=== PATIENT | male | born 1955 | race Caucasian/White ===

== ENCOUNTER 2017-03-31 12:23 | Outpatient (CLI) | payer BC, OTHER ==
--- NOTE | 2017-03-31 12:49 | RAD ---
KUB: HISTORY: Renal calculus. FINDINGS: There is a large amount of stool present in the colon. This completely obscures the right kidney. I do not see any definitive left renal calculi. Two calcifications in the left side of the pelvis cou ld potentially be in the distal left ureter. I do not definitely visualize these on the prior exam. IMPRESSION: 1. The right kidney is completely obscured by a large amount of stool. No definitive renal calculi. 2. Two calcifications left side of the pelvis, potentially distal ureteral calculi. POS: SANJAY
[2017-03-31 13:47] LABS: Bacteria/HPF None Seen HPF (None Seen); Hyaline Casts/LPF 0-3 HYALINE CAST LPF (0-3 Hyaline); Squamous Epithelial None Seen HPF (0-3); WBC/HPF None Seen HPF (0-3)
[2017-03-31 13:49] LABS: Bilirubin Negative (Negative); Blood, Urine Moderate (Negative); Glucose, Urine (Dipstick) Negative (Negative); Ketone, Urine Negative (Negative); Nitrite Negative (Negative); Protein, Urine (Dipstick) Negative (Neg-Trace); Urobilinogen 0.2 mg/dL (0.2-1.0)
== END 2017-03-31 12:24 | disposition home or self-care (01) ==
LOC: RAD 12:23
PROVIDERS: ATTEND Urology
DX: N20.2 Calculus of kidney with calculus of ureter (principal); R35.0 Frequency of micturition
CPT/HCPCS: 74000; 81001; 87086

== ENCOUNTER 2017-04-11 07:20 | Outpatient (CLI) | payer BC, OTHER ==
[2017-04-11 08:38] LABS: Anion Gap 11 mmol/L (10-20); BUN (Urea Nitrogen) 15 mg/dL (8.4-25.7); Calc. Creatinine Clearance 0 mL/min (70-130); Calcium 9.2 mg/dL (7.8-10.44); Carbon Dioxide 29 mmol/L (23-31); Chloride 104 mmol/L (98-107); Estimated GFR-MDRD Greater than 90
--- NOTE | 2017-04-11 09:01 | ULT ---
ULTRASOUND RETROPERITONEUM COMPLETE: (RENAL) HISTORY: 61-year-old male with calculus of kidney and calculus of ureter. FINDINGS: The right kidney measures 11 x 5.5 x 6 cm. The left kidney measures 11.5 x 5 x 5 cm. Both kidneys h ave normal cortical thickness and normal cortical echogenicity. There is no hydronephrosis. Cursory images of the urinary bladder demonstrate no gross abnormality. IMPRESSION: Normal jn POS: GER
--- NOTE | 2017-04-11 09:24 | RAD ---
SUPINE AP ABDOMINAL RADIOGRAPH: Date: 04/11/17 HISTORY: Ureteral calculi. COMPARISON: 03/31/17. FINDINGS: There is a moderate amount of retained fecal material seen throughout the colon. This does obscure th e renal shadows bilaterally, limiting evaluation for renal calculi. No definitive suspicious calcific ations are seen. A few punctate radiopaque densities are seen overlying the abdomen, which were also seen on the prior study, but have certainly decreased in number and likely related to ingested materi al within bowel. Vascular calcifications and phleboliths overlie the pelvis. Degenerative changes are noted in the spine. There is right convex curvature of the lumbar spine. IMPRESSION: 1. Obscuration of the renal shadows bilaterally due to retained fecal material within the colon. The re are stable calcifications overlying the pelvis, which may represent phleboliths and vascular type calcifications. 2. Moderate amount of retained fecal material seen throughout the colon. POS: GER
== END 2017-04-11 07:21 | disposition home or self-care (01) ==
LOC: ULT 07:20
PROVIDERS: ATTEND Urology
DX: N20.2 Calculus of kidney with calculus of ureter (principal); K59.09 Other constipation; K31.89 Other diseases of stomach and duodenum
CPT/HCPCS: 36415; 74000; 76770; 80048

== ENCOUNTER 2017-11-24 10:16 | Outpatient (CLI) | payer BC, OTHER | END 2017-11-24 10:17 | disposition home or self-care (01) | LOC: BICULT 10:16 | PROVIDERS: ATTEND Urology | DX: N20.0 Calculus of kidney (principal); R39.198 Other difficulties with micturition | CPT/HCPCS: 36415; 74018; 76770; 80048; 81003; 87086; G0103 ==

== ENCOUNTER 2018-08-07 12:48 | Outpatient (CLI) | payer BC, OTHER ==
--- NOTE | 2018-08-07 13:42 | ULT ---
BILATERAL RENAL ULTRASOUND: HISTORY: Incomplete bladder emptying. COMPARISON: 04/11/2017 FINDINGS: The right kidney measures 11.5 cm in length, and the left kidney measures 11.1 cm in length. No mass or hydronephrosis is seen on either side. A 6 mm shadowing, echogenic focus, consistent with calcul us, is seen in the right mid-inferior kidney. Pre-void bladder volume measures 629 mL, with a post void residual of 407 mL. IMPRESSION: 1. Nonobstructing right renal calculus. 2. Significant post void residual volume in the urinary bladder. POS: OFF
== END 2018-08-07 12:49 | disposition home or self-care (01) ==
LOC: BICULT 12:48
PROVIDERS: ATTEND Urology
DX: R39.14 Feeling of incomplete bladder emptying (principal); R35.0 Frequency of micturition; N40.1 Benign prostatic hyperplasia with lower urinary tract symptoms; Z87.442 Personal history of urinary calculi; N20.0 Calculus of kidney
CPT/HCPCS: 76770

== ENCOUNTER 2018-12-11 14:14 | Outpatient (CLI) | payer BC, OTHER ==
--- NOTE | 2018-12-11 15:49 | RAD ---
AP ABDOMINAL RADIOGRAPH: 12/11/18 HISTORY: Renal calculus. COMPARISON: 04/11/17. FINDINGS: Renal shadows are mostly obscured due to overlying bowel gas. Calcifications are again seen overlying the pelvis likely related to phleboliths and prostate calcifications. No definitive suspicious calci fication is seen. A moderate amount of retained fecal material is seen throughout the colon. Degenera tive changes are again noted of the spine. IMPRESSION: 1. Overall stable radiograph of the abdomen with moderate amount of retained fecal material in t he colon. 2. Obscuration of renal shadows, but no definitive suspicious calcifications are seen. Stable ca lcifications again overlying the pelvis. POS: KRC
== END 2018-12-11 14:15 | disposition home or self-care (01) ==
LOC: BICRAD 14:14
PROVIDERS: ATTEND Urology
DX: Z12.5 Encounter for screening for malignant neoplasm of prostate (principal); N20.0 Calculus of kidney; K59.00 Constipation, unspecified; N28.89 Other specified disorders of kidney and ureter; R35.0 Frequency of micturition; R39.14 Feeling of incomplete bladder emptying
CPT/HCPCS: 36415; 74018; 80048; 81001; G0103

== ENCOUNTER 2019-12-16 10:29 | Outpatient (CLI) | payer BC, OTHER, MEDICARE ==
--- NOTE | 2019-12-16 10:59 | RAD ---
EXAM: Supine abdomen INDICATIONS: Calculus of kidney COMPARISON: 12/11/2018 FINDINGS: Large amount of stool throughout the colon obscures the renal outlines. Tiny calcific density in the left mid abdomen could potentially be renal. No other definite renal lisha cifications can't be confirmed. IMPRESSION: Large amount of stool obscures the renal outlines.
== END 2019-12-16 10:30 | disposition home or self-care (01) ==
LOC: RAD 10:29
PROVIDERS: ATTEND Urology
DX: Z12.5 Encounter for screening for malignant neoplasm of prostate (principal); N20.0 Calculus of kidney; N40.1 Benign prostatic hyperplasia with lower urinary tract symptoms; R39.14 Feeling of incomplete bladder emptying; K59.00 Constipation, unspecified
CPT/HCPCS: 74018

== ENCOUNTER 2020-03-27 06:21 | Outpatient (CLI) | payer BC, MEDICARE, OTHER ==
[2020-03-27 11:20] LABS: Bilirubin Neg (Negative); Blood, Urine Negative (Negative); Clarity Clear (Clear); Glucose, Urine (Dipstick) Normal (Negative); Hemoglobin 11.9 g/dL (14.0-18.0); Ketone, Urine Negative (Negative); Leukocyte Negative (Negative); Mean Corpuscular HGB CONC 32.4 G/DL (32.0-36.0); Mean Corpuscular Hemoglobin 29.2 PG (27.0-33.0); Mean Platelet Volume 9.5 fl (7.4-10.4); Nitrite Negative (Negative); Platelet Count 217 10x3/uL (130-400); Protein, Urine (Dipstick) Negative (Neg-Trace); RBC Distribution Width 13.2 % (11.5-14.5); Red Blood Cell (RBC) Count 4.08 10x6/uL (4.40-5.80); Urobilinogen Normal mg/dL (Less than 2); White Blood Cell (WBC) Count 5.9 10x3/uL (4.5-11.0)
[2020-03-27 11:36] LABS: Bacteria/HPF Rare-Few HPF (None Seen); RBC/HPF None Seen HPF (0-3); Squamous Epithelial 0-3 HPF (0-3); WBC/HPF 0-3 HPF (0-3)
[2020-03-27 11:37] LABS: PTT 25.9 sec (22.0-33.0); Prothrombin Time 10.6 sec (9.5-12.1)
[2020-03-27 11:39] LABS: Anion Gap 13 mmol/L (10-20); BUN (Urea Nitrogen) 13 mg/dL (8.4-25.7); Calc. Creatinine Clearance 0 mL/min (70-130); Calcium 8.7 mg/dL (7.8-10.44); Carbon Dioxide 25 mmol/L (23-31); Chloride 107 mmol/L (98-107); Estimated GFR-MDRD Greater than 90; Glucose 109 mg/dL (80-115); Potassium 4.1 mmol/L (3.5-5.1); Sodium 141 mmol/L (136-145)
[2020-03-27 22:10] LABS: SARS-CoV-2 MS2 Positive; SARS-CoV-2 N Gene Negative; SARS-CoV-2 S Gene Negative; SARS-CoV-2 by NAA Not Detected (NotDetected); SARS-CoV-2 orf1ab Negative
--- NOTE | 2020-03-31 06:57 | EKG ---
Test Reason : Blood Pressure : / mmHG Vent. Rate : 067 BPM Atrial Rate : 067 BPM P-R Int : 200 ms QRS Dur : 094 ms QT Int : 392 ms P-R-T Axes : 065 073 064 degrees QTc Int : 414 ms Normal sinus rhythm Normal ECG Confirmed by RHONDA GARCÍA MD ([id number]) on 03/31/2020 6:56:57 AM Referred By: ZABRINA Confirmed By:RHONDA GARCÍA MD
== END 2020-03-27 06:22 | disposition home or self-care (01) ==
LOC: LABBT 06:21
PROVIDERS: ATTEND Urology
DX: Z01.818 Encounter for other preprocedural examination (principal); Z12.5 Encounter for screening for malignant neoplasm of prostate; Z20.828 Contact with and (suspected) exposure to other viral communicable diseases; N20.0 Calculus of kidney; N40.1 Benign prostatic hyperplasia with lower urinary tract symptoms; K59.00 Constipation, unspecified; R35.0 Frequency of micturition; R39.14 Feeling of incomplete bladder emptying
CPT/HCPCS: 80048; 81001; 85027; 85610; 85730; 87086; 87635; 93005; 93010; U0003

== ENCOUNTER 2020-04-01 06:03 | Day surgery (SDC) | payer BC, MEDICARE, OTHER ==
[2020-03-31 12:12] VITALS: BMI 29.0
[2020-04-01] MEDS ORDERED: Levofloxacin 500 mg/D5W 100 ml Premix Bag ONE (06:31)
[2020-04-01] MEDS ORDERED: Fentanyl 100 MCG/2 ML VIAL ONE (07:10)
[2020-04-01] MEDS ORDERED: Midazolam HCl 2 mg/2 ml Vial ONE (07:18)
--- NOTE | 2020-04-01 08:36 | OP ---
DATE OF PROCEDURE: 04/01/2020 PREOPERATIVE DIAGNOSES: 1. A 64-year-old male with history of BPH. 2. History of incomplete emptying. POSTOPERATIVE DIAGNOSES: 1. A 64-year-old male with history of BPH. 2. History of incomplete emptying. PROCEDURES PERFORMED: Cystoscopy, UroLift implant x6. ANESTHESIA: TIVA. COMPLICATIONS: None apparent. DISPOSITION: To recovery room in stable condition. INDICATION FOR PROCEDURE AND HISTORY: Mr. Butler is a 64-year-old male with history of BPH, with a history of component of large capacity bladder, has been on Rapaflo for numerous years with IPSS score of 27. He presents today for his UroLift. Alternatives of option including medical observation, TURP was discussed with him in detail. All questions answered to his satisfaction, he desired to proceed. Risks and complications of procedure including, but not limited to, bleeding, pain, infection, injury to adjacent organs, ureteral/bladder injury, possible incrustation/migration of implant warranting removal, more definitive surgery were reviewed. I fully informed him as he has a component of myogenic bladder, incomplete emptying may continue. All questions answered to his satisfaction and desires to proceed. DESCRIPTION OF PROCEDURE: After an informed consent was signed, the patient was taken to the operating room, placed in a dorsal lithotomy position with the genital area prepped and draped in the usual surgical sterile fashion. A 21-Divehi cystoscope was utilized with a visual obturator, which demonstrated bilobar hyperplasia with coapting lateral lobes. He does have a component of high median bar. The UOs were well away from the bladder neck with diffuse trabeculation, no bladder stones or tumors were seen we initially treated the left side first, we stayed 1.5 cm distal to the bladder neck and the implants were placed, a total of 3 on the left total and a total of 3 implants on the right lateral lobe. I did perform a stacking maneuver at the level of the proximal implant as he has a component of high median bar, which opened up a nice anterior channel for him. At the end of the procedure, resolution of obstructing lobes. he did have some mild cat eye effect however, with the stacking maneuver this resolved. a wide anterior channel with open bladder neck was appreciated. An 18-Divehi 30 mL Herman catheter was placed, CBI tubing attached and clamped. We will monitor him for degree of hematuria and initiate a voiding trial if no significant hematuria of concern. He will see me tomorrow for peak-flow PVR. Job ID: [id number] MTDD
[2020-04-01] MEDS ORDERED: Phenazopyridine HCl 100 MG TAB ONE (08:57)
[2020-04-01] MEDS ORDERED: PROPOFOL 200 MG/20 ML VIAL ONE (11:01)
== END 2020-04-01 12:15 | disposition home or self-care (01) ==
LOC: SDC 06:03
PROVIDERS: ATTEND Urology
PROC: 0T7D8DZ Dilation of Urethra with Intraluminal Device, Via Natural or Artificial Opening Endoscopic (ICD-10-PCS; principal; 2020-04-01)
DX: N40.1 Benign prostatic hyperplasia with lower urinary tract symptoms (principal); R35.0 Frequency of micturition; R39.14 Feeling of incomplete bladder emptying; N20.0 Calculus of kidney; K59.00 Constipation, unspecified; E78.5 Hyperlipidemia, unspecified; I10 Essential (primary) hypertension; Z79.82 Long term (current) use of aspirin; Z79.899 Other long term (current) drug therapy; Z88.6 Allergy status to analgesic agent; Z88.8 Allergy status to other drugs, medicaments and biological substances
CPT/HCPCS: C1889; J1956; J2250; J2704; J3010

== ENCOUNTER 2020-06-26 09:17 | Outpatient (CLI) | payer BC, MEDICARE, OTHER | END 2020-06-26 09:18 | disposition home or self-care (01) | LOC: RAD 09:17 | PROVIDERS: ATTEND Urology | DX: N20.0 Calculus of kidney (principal); R19.5 Other fecal abnormalities | CPT/HCPCS: 74018 ==

== ENCOUNTER 2021-12-23 09:57 | Outpatient (CLI) | payer BC, MEDICARE, OTHER | END 2021-12-23 09:58 | disposition home or self-care (01) | LOC: BICRAD 09:57 | PROVIDERS: ATTEND Urology | DX: N20.0 Calculus of kidney (principal) | CPT/HCPCS: 74018 ==

== ENCOUNTER 2022-11-24 10:39 | Outpatient (CLI) | payer BC, MEDICARE, OTHER | END 2022-11-24 10:40 | disposition home or self-care (01) | LOC: RAD 10:39 | PROVIDERS: ATTEND Family Medicine | DX: R05.3 Chronic cough (principal); J98.4 Other disorders of lung | CPT/HCPCS: 71046 ==

== ENCOUNTER 2022-12-27 08:35 | Outpatient (CLI) | payer BC, MEDICARE, OTHER | END 2022-12-27 08:36 | disposition home or self-care (01) | LOC: RAD 08:35 | PROVIDERS: ATTEND Family Medicine | DX: J40 Bronchitis, not specified as acute or chronic (principal) | CPT/HCPCS: 71046 ==

== ENCOUNTER 2023-01-06 09:16 | Outpatient (CLI) | payer BC, MEDICARE, OTHER | END 2023-01-06 09:17 | disposition home or self-care (01) | LOC: RAD 09:16 | PROVIDERS: ATTEND Urology | DX: N20.0 Calculus of kidney (principal) | CPT/HCPCS: 74018 ==

== ENCOUNTER 2023-04-14 12:03 | Outpatient (CLI) | payer MEDICARE, OTHER | END 2023-04-14 12:04 | disposition home or self-care (01) | LOC: BICRAD 12:03 | PROVIDERS: ATTEND Allergy & Immunology | DX: J18.9 Pneumonia, unspecified organism (principal); R91.8 Other nonspecific abnormal finding of lung field | CPT/HCPCS: 71046 ==

== ENCOUNTER 2023-12-04 14:11 | Outpatient (CLI) | payer MEDICARE, OTHER | END 2023-12-04 14:12 | disposition home or self-care (01) | LOC: RAD 14:11 | PROVIDERS: ATTEND Family Medicine | DX: R05.3 Chronic cough (principal); J47.9 Bronchiectasis, uncomplicated; J98.4 Other disorders of lung | CPT/HCPCS: 71046 ==

== ENCOUNTER 2024-12-26 10:09 | Outpatient (CLI) | payer MEDICARE, OTHER | END 2024-12-26 10:10 | disposition home or self-care (01) | LOC: BICRAD 10:09 | PROVIDERS: ATTEND Urology | DX: N20.0 Calculus of kidney (principal); K59.00 Constipation, unspecified | CPT/HCPCS: 74018 ==

== ENCOUNTER 2025-01-24 15:11 | Outpatient (CLI) | payer MEDICARE, OTHER | END 2025-01-24 15:12 | disposition home or self-care (01) | LOC: ULT 15:11 | PROVIDERS: ATTEND Urology | DX: N20.0 Calculus of kidney (principal); R39.14 Feeling of incomplete bladder emptying | CPT/HCPCS: 76770 ==